=== PATIENT | female | born 2000 | race American Indian/Alaskan Native ===

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

== ENCOUNTER 2021-02-19 18:31 | Emergency (ER) | payer SELFPAY ==
[2021-02-19 19:09] VITALS: BP 113/64
--- NOTE | 2021-02-19 19:15 | Event Note ---
ED Screening Note Date of service: 02/19/21 Time: 19:15 ED Screening Note: States possible abscess to left groin This initial assessment/diagnostic orders/clinical plan/treatment(s) is/are subject to change based on patients health status, clinical progression and re- assessment by fellow clinical providers in the ED. Further treatment and workup at subsequent clinical providers discretion. Patient/guardian urged not to elope from the ED as their condition may be serious if not clinically assessed and managed. Initial orders include: Further evaluation in ACC
[2021-02-19] MEDS ORDERED: HYDROcodone/ACETAMINOPHEN 5-325 MG TAB PO ONE (21:54)
[2021-02-19 22:14] LABS: HCG Qualitative,Urine Negative (Negative)
[2021-02-19 22:23] LABS: Bilirubin,Urine NEG (Negative); Blood,Urine NEG (Negative); Color,Urine Straw (Yellow); Mucus,Urine 2+ /HPF; Protein,Urine <15 mg/dL mg/dL (Negative); RBC,Urine < 1.0 /HPF (0.0-6.0); Urobilinogen,Urine < 2.0 mg/dL (<2.0)
[2021-02-19] MEDS ORDERED: LIDOCAINE-MPF (1%) 10 MG/1 ML VIAL 5 ML INFILTRATI ONE (23:16)
--- NOTE | 2021-02-19 23:50 | Emergency Department Report ---
ED Female HPI - General Chief complaint: Skin/Abscess/Foreign Body Stated complaint: LUMP ON UPPER RIGHT GROIN Time Seen by Provider: 02/19/21 19:14 Source: patient, family Mode of arrival: Ambulatory Limitations: No Limitations - History of Present Illness Initial comments: 20-year-old -Turkish female resents emerged department complaining of having a painful nodule to her left groin region of an unknown etiology. States that she had 2 rounds of STDs which were previously evaluated. Last in November 2019 which showed a negative herpes smear but a positive STD GC screening. Reports no fever, chills, sweats, hemoptysis, hematemesis hematochezia, no hematuria, no dysuria, no nausea, no vomiting. MD Complaint: vaginal discharge, pelvic pain Location: suprapubic Radiation: non-radiating Severity: mild Consistency: constant Improves with: none Worsens with: none Are you Now?: No Associated Symptoms: denies other symptoms - Related Data Sexually active: No Previous Rx's Medication Instructions Recorded Last Taken Type Cyclobenzaprine HCl [Flexeril 5 MG 5 mg PO TID PRN #15 tab 10/29/19 Unknown Rx TAB] Ibuprofen [Motrin 400 MG tab] 400 mg PO TID 5 Days #15 tablet 10/29/19 Unknown Rx Doxycycline Hyclate 100 mg PO BID #20 tablet. 02/19/21 Unknown Rx metroNIDAZOLE [Flagyl] 2,000 mg PO ONCE #4 tab 02/19/21 Unknown Rx Allergies Allergy/AdvReac Type Severity Reaction Status Date / Time honey Allergy Angioedema Verified 02/19/21 19:05 tomato Allergy Hives Verified 02/19/21 19:05 watermelon AdvReac Itching Verified 02/19/21 19:05 ED Review of Systems ROS: Stated complaint: LUMP ON UPPER RIGHT GROIN Other details as noted in HPI Comment: All other systems reviewed and negative ED Past Medical Hx - Past Medical History Hx Psychiatric Treatment: Yes (Depression, Anxiety) Additional medical history: allergies - Social History Smoking Status: Current Every Day Smoker - Medications Home Medications: Home Medications Medication Instructions Recorded Confirmed Last Taken Type Cyclobenzaprine HCl [Flexeril 5 MG 5 mg PO TID PRN #15 tab 10/29/19 Unknown Rx TAB] Ibuprofen [Motrin 400 MG tab] 400 mg PO TID 5 Days #15 tablet 10/29/19 Unknown Rx Doxycycline Hyclate 100 mg PO BID #20 tablet. 02/19/21 Unknown Rx metroNIDAZOLE [Flagyl] 2,000 mg PO ONCE #4 tab 02/19/21 Unknown Rx ED Physical Exam - General Limitations: No Limitations General appearance: alert, in no apparent distress - Head Head exam: Present: atraumatic, normocephalic - Eye Eye exam: Present: normal appearance, PERRL, EOMI - ENT ENT exam: Present: mucous membranes moist - Neck Neck exam: Present: normal inspection - Respiratory Respiratory exam: Present: normal lung sounds bilaterally. Absent: respiratory distress - Cardiovascular Cardiovascular Exam: Present: regular rate, normal rhythm. Absent: systolic murmur, diastolic murmur, rubs, gallop - GI/Abdominal GI/Abdominal exam: Present: soft, normal bowel sounds - Speculum exam: Present: vaginal discharge, other (Positive vaginal bleeding lesions. Left inguinal lymphadenopathy is noted.) - Extremities Exam Extremities exam: Present: normal inspection - Back Exam Back exam: Present: normal inspection - Neurological Exam Neurological exam: Present: alert, oriented X3 - Psychiatric Psychiatric exam: Present: normal affect, normal mood - Skin Skin exam: Present: warm, dry, intact, normal color. Absent: rash ED Course Vital Signs 02/19/21 19:07 Temperature 99.1 F Pulse Rate 99 H Respiratory 18 Rate Blood Pressure 113/64 O2 Sat by Pulse 100 Oximetry Critical care attestation.: If time is entered above; I have spent that time in minutes in the direct care o f this critically ill patient, excluding procedure time. ED Disposition Clinical Impression: Mucositis (ulcerative) of vagina and vulva, Vaginitis Disposition: TO HOME OR SELFCARE Is pt being admited?: No Does the pt Need Aspirin: No Condition: Stable Instructions: Bacterial Vaginosis, [id number], Vaginitis, [id number], Vaginitis, Syphilis Test, Chlamydia Test, Gonorrhea Prescriptions: Doxycycline Hyclate 100 mg PO BID #20 tablet. metroNIDAZOLE [Flagyl] 2,000 mg PO ONCE #4 tab Referrals: PRIMARY CARE, [Primary Care Provider] - 3-5 Days [facility] [Outside] - 3-5 Days [facility] [Provider Group] - 3-5 Days
[2021-02-20] MEDS ORDERED: LIDOCAINE VISCOUS 2% 15 ML ORAL LIQD MM NR (00:45)
== END 2021-02-20 01:17 | disposition home or self-care (01) ==
LOC: ED 18:31
DX: N76.81 Mucositis (ulcerative) of vagina and vulva (principal); N76.0 Acute vaginitis; F32.9 Major depressive disorder, single episode, unspecified; F41.9 Anxiety disorder, unspecified; F17.200 Nicotine dependence, unspecified, uncomplicated; Z91.018 Allergy to other foods; Z79.899 Other long term (current) drug therapy
CPT/HCPCS: 81001; 81025